=== PATIENT | female | born 1965 | race Caucasian/White ===

== ENCOUNTER 2017-04-29 11:15 | Outpatient (CLI) | payer BC ==
[2017-04-29 12:09] LABS: Mean Corpuscular HGB CONC 32.5 g/dL (32.0-36.0); Mean Corpuscular Volume 92.4 fl (81.0-99.0); Platelet Count 268 thou/uL (130-400); RBC Distribution Width 11.3 % (11.5-14.5); Red Blood Cell (RBC) Count 4.33 mill/uL (4.20-5.40); White Blood Cell (WBC) Count 10.1 thou/uL (4.8-10.8)
[2017-04-29 12:33] LABS: Anion Gap 11 mmol/L (10-20); BUN (Urea Nitrogen) 13 mg/dL (9.8-20.1); Calc. Creatinine Clearance 0 mL/min (70-130); Calcium 9.4 mg/dL (7.8-10.44); Carbon Dioxide 26 mmol/L (22-29); Chloride 101 mmol/L (98-107); Estimated GFR-MDRD 81; Glucose 91 mg/dL (70-105); Potassium 3.6 mmol/L (3.5-5.1); Sodium 134 mmol/L (136-145)
--- NOTE | 2017-05-01 17:34 | EKG ---
Test Reason : Blood Pressure : / mmHG Vent. Rate : 065 BPM Atrial Rate : 065 BPM P-R Int : 186 ms QRS Dur : 094 ms QT Int : 412 ms P-R-T Axes : 050 059 035 degrees QTc Int : 428 ms Normal sinus rhythm Normal ECG When compared with ECG of 04-OCT-2016 08:50, No significant change was found Confirmed by DR. Lacey PZIARRO ([id number]) on 05/01/2017 5:34:37 PM Referred By: MONO Confirmed By:DR. Lacey PIZARRO
== END 2017-04-29 11:16 | disposition home or self-care (01) ==
LOC: LABBT 11:15
PROVIDERS: ATTEND Orthopaedic Surgery Hand Surgery
DX: Z01.818 Encounter for other preprocedural examination (principal); M77.9 Enthesopathy, unspecified
CPT/HCPCS: 80048; 85027; 85652; 93005; 93010

== ENCOUNTER 2017-05-06 10:11 | Day surgery (SDC) | payer BC ==
[2017-04-29 11:32] VITALS: BMI 27.3
[2017-05-06] MEDS ORDERED: Bacitracin Zinc Ointment 30 gm TUBE ONE ×2 (13:55→14:51)
[2017-05-06] MEDS ORDERED: Bupivacaine 0.5% 10 ML VIAL ONE (13:55)
[2017-05-06] MEDS ORDERED: Sodium Chloride 0.9% 10 ML ONE (13:55)
[2017-05-06] MEDS ORDERED: Lidocaine 1% (PF) 30 ML VIAL ONE (13:55)
[2017-05-06] MEDS ORDERED: Thrombin 5000 UNITS/5 ML VIAL ONE (13:55)
[2017-05-06] MEDS ORDERED: Fentanyl 250 MCG/5 ML VIAL ONE (13:58)
[2017-05-06] MEDS ORDERED: CEFAZOLIN/Water 2 GM/20 ML SYRINGE ONE (14:10)
[2017-05-06] MEDS ORDERED: Midazolam HCl 2 mg/2 ml Vial ONE (14:10)
[2017-05-06] MEDS ORDERED: Betamet Acet/Betamet Na Ph 30 MG/5 ML VIAL ONE (15:09)
[2017-05-06] MEDS ORDERED: Ketorolac Tromethamine 30 MG/ML VIAL ONE ×2 (16:10→17:31)
[2017-05-06] MEDS ORDERED: PROPOFOL 200 MG/20 ML VIAL ONE (17:31)
[2017-05-06] MEDS ORDERED: Ondansetron HCl/PF 4 MG/2 ML Vial ONE (17:31)
[2017-05-06] MEDS ORDERED: Lidocaine 1% PF 5 ML VIAL ONE (17:31)
[2017-05-06] MEDS ORDERED: Dexamethasone 20 MG/5 ML VIAL ONE (17:31)
--- NOTE | 2017-05-06 19:34 | RAD ---
FINGERS LEFT HAND: 05/06/17 Three fluoroscopic images from OR presented. INDICATIONS: Hardware removal in OR. FINDINGS/IMPRESSION: Initial images show two pins in the middle phalanx of the fourth digit. Final two images no long show the pins indicating interval removal. POS: NA
--- NOTE | 2017-05-07 14:30 | OP ---
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 PROCEDURES PERFORMED: 1. Arthrotomy distal phalangeal joint. 2. Tenolysis with removal of the screws x2 under C-arm supervision. SPECIMEN REMOVED: Two times 1.5 screws. TOURNIQUET TIME: 34 minutes. ESTIMATED BLOOD LOSS: 10 mL. Found to have very adhesed extensor tendon over the fracture site and screws. DESCRIPTION OF PROCEDURE: After successful general LMA technique by [place] anesthesia, the limb wa s prepped and draped. The patient had the incision outlined using the previous incision extended 5-m m proximal to distal. It was a zigzag dorsal . Patient then had the limb injected, before we m simran an incision with a 10 mL of 0.5% Marcaine metacarpophalangeal joint block level, exsanguinate camrichael b and placed tourniquet at 250 mmHg pressure. We imbricated the incision and carried this through the skin, subcutaneous tissue, use of C-arm local ized screws, visualized the lateral edge of the joint of the ring finger over the ulnar edge and then incised the joint. We then went onto the tendon with a [place] blade, lifted it up, used this in com bination with a [place] until the tendon could glide almost 3-4 mm more. At this point, she easily cou ld achieve passive range of motion of 55-60 degrees flexion, where before she only to 20 degrees with very straight endpoint. There was a supple endpoint now. Extension was not lost. We removed the two screws, now that manipulation was complete, and sent them to the laboratory. The patient had the tourniquet deflated. Hemostasis obtained. We placed 2 mL of Celestone, placed betam ethasone underneath the tendon, between tendon and bone layer, obtained hemostasis here and then clos ed the wound with interrupted 5-0 nylon in simple pattern.
== END 2017-05-06 17:26 | disposition home or self-care (01) ==
LOC: SDC 10:11
PROVIDERS: ATTEND Orthopaedic Surgery Hand Surgery
DX: M24.542 Contracture, left hand (principal); M24.642 Ankylosis, left hand; Z98.890 Other specified postprocedural states; Z79.899 Other long term (current) drug therapy
CPT/HCPCS: 76001; 96372; A4216; J0702; J1100; J1885; J2001; J2250; J2405; J2704; J3010; J3490